=== PATIENT | male | born 1980 | race Caucasian/White ===

== ENCOUNTER 2018-04-17 17:27 | Emergency (ER) | payer BC, OTHER ==
[~2018-04-17] VITALS: Ht 177.8 cm; Wt 95.5 kg
[2018-04-17 19:38] VITALS: BP 123/87
== END 2018-04-17 20:11 | disposition home or self-care (01) ==
LOC: ED 18:18
DX: H53.8 Other visual disturbances (principal); R51 Headache
CPT/HCPCS: 70450; 93005; 99284